=== PATIENT | female | born 2000 | race Caucasian/White ===

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

== ENCOUNTER → 2019-03-25 07:12 | Outpatient (CLI) | payer OTHER, SELFPAY ==
--- NOTE | 2019-03-25 07:13 | DI.US.S_ITS ---
PROCEDURE: US PELVIC COMPLETE INDICATIONS: CHECK IUD PLACEMENT TECHNIQUE: Real-time scanning was performed of the pelvic organs, with image documentation. Additional endovaginal scanning was necessary due to incomplete visualization of the adnexal and endometrial structures by transabdominal scanning. COMPARISON: [facility], , US PELVIC COMPLETE, 08/24/2018, 15:38. FINDINGS: Transabdominal scanning: Limited scanning through the kidneys shows no hydronephrosis. No pathologic free abdominal or pelvic fluid. Endovaginal scanning: Uterus: Uterus is is anteverted and normal in size at 7.3 x 4.0 x 4.5 cm. (note the uterus was previously retroverted on 08/24/2018). No uterine mass. Vascularity appears normal. The endometrium measures 4.8 mm in combined thickness. Intrauterine device in the expected position. Ovaries: Homogeneous, complex right ovarian mass measuring 3.6 x 2.2 x 3.1 cm and there is mild posterior acoustic enhancement present. Left ovary is normal at 3.0 x 1.6 x 3.0 cm. Mild amount of hemorrhagic free fluid is present in the pelvic cul-de-sac. IMPRESSION: 1. Intrauterine device in the expected positions. 2. Probable hemorrhagic ovarian cyst involving the right ovary. Given the complexity present, recommend short term follow pelvic ultrasound in 6-10 weeks to assess for temporal resolution. 3. Mild amount of hemorrhagic free fluid. Dictated by: Santino PHELPS Interpreted: Mansoor Orellana MD on 03/25/2019 at 9:27 Approved by: Mansoor Orellana M.D. on 03/25/2019 at 13:07
== END ==
PROVIDERS: PCP Family Medicine; Visit Provider Specialist
DX: T83.32XA Displacement of intrauterine contraceptive device, initial encounter (principal); N83.9 Noninflammatory disorder of ovary, fallopian tube and broad ligament, unspecified
CPT/HCPCS: 76830; 76856

== ENCOUNTER → 2021-01-17 12:43 | Outpatient (CLI) | payer OTHER, SELFPAY ==
--- NOTE | 2021-01-17 12:45 | DI.CT.S_ITS ---
PROCEDURE: CT SINUS SCREEN WO CON INDICATIONS: Chronic pansinusitis TECHNIQUE: Noncontrast 3.0 mm axial images acquired from the frontal sinuses to the mid-sella, with coronal and sagittal reformats. For radiation dose reduction, the following was used: automated exposure control, adjustment of mA and/or kV according to patient size. COMPARISON: None. FINDINGS: Image quality: Excellent. Maxillary Sinuses: No bony remodeling or destruction. Sinuses are clear. Ethmoid Air Cells: No bony remodeling or destruction. Sinuses are clear. Sphenoid Sinuses: No bony remodeling or destruction. Sinuses are clear. Frontal Sinuses: No bony remodeling or destruction. Sinuses are clear. Ostiomeatal Complexes: Ostiomeatal complexes are patent. No Karlo cells. Miscellaneous: Visualized intra-orbital contents are normal. No apple bullosa or paradoxical turbinate curvature. There is minimal rightward nasal septal deviation. IMPRESSION: No significant active paranasal sinus disease is seen. Minimal rightward nasal septal deviation can be seen. Dictated by: Tab Baptiste M.D. on 01/17/2021 at 12:39 Approved by: Tab Baptiste M.D. on 01/17/2021 at 12:40
== END ==
PROVIDERS: PCP Family Medicine; Referring Provider Otolaryngology; Visit Provider Otolaryngology
DX: J32.4 Chronic pansinusitis (principal)
CPT/HCPCS: 70486

== ENCOUNTER → 2021-08-15 09:45 | Outpatient (CLI) | payer OTHER, SELFPAY ==
[2021-08-15 12:10] LABS: COVID19 -Nasal RAPID Negative (Negative)
== END ==
PROVIDERS: PCP Family Medicine; Visit Provider Nurse Practitioner Family
DX: Z20.822 Contact with and (suspected) exposure to COVID-19 (principal)
CPT/HCPCS: 87635; C9803

== ENCOUNTER 2021-08-16 07:13 | Day surgery (SDC) | payer OTHER, SELFPAY ==
[2021-08-13 15:07] VITALS: BMI 19.1
[2021-08-16] VITALS (13 sets, daily range): BP systolic 111–140; BP diastolic 64–91; PULSE 6–102; RESP 10–18; TEMP 36.3–37; O2SAT 91–100; BMI 19.1
--- NOTE | 2021-08-16 07:34 | PM.PREOP ---
Pre-operative Note Interval Note History & Physical reviewed/Exam performed by Physician: Yes Changes to H&P: Yes
--- NOTE | 2021-08-16 07:34 | PM.HP.1 ---
History of Present Illness History of Present Illness Date Patient Seen: 08/16/21 Time Patient Seen: 07:34 Chief complaint: Chronic tonsillitis Narrative: 20-year-old female with known chronic tonsillitis, tonsil stones, halitosis and throat pain, incompletely managed with medical therapy presents for tonsillectomy and possible adenoidectomy. Last seen in clinic 06/27/2021, tonsils 2+ on exam without visible stones. No interval health changes, wishes to proceed. Patient History Medical History Dysmenorrhea GERD (gastroesophageal reflux disease) Menorrhagia Pelvic varices Tonsil stone Surgical History H/O of nasal cauterization History of hysteroscopy (10/09/18) Family & Social History Social History: household members family Tobacco & Substance use: Smoking Status Never smoker alcohol intake current Meds Home Medications and Allergies Home Medications Medication Instructions Recorded Confirmed Type pantoprazole 40 mg tablet,delayed 40 mg PO DAILY 08/16/21 08/16/21 History release Allergies Allergy/AdvReac Type Severity Reaction Status Date / Time latex Allergy Unknown Verified 08/16/21 07:20 lactose AdvReac Severe throat Verified 11/12/18 15:44 hurts, itching , swollen throat Review of Systems Review of Systems Narrative: Negative except as listed in the HPI along with GERD Exam Narrative Exam Narrative: Well-developed well-nourished female in no acute distress. Heart regular rate and rhythm without murmur, lungs clear to auscultation bilaterally Assessment & Plan Assessment & Plan narrative: Assessment: Chronic tonsillitis, tonsil stones, halitosis, throat pain Plan: Following discussion of the material risks benefits complications and alternatives, she elected to proceed with tonsillectomy and possible adenoidectomy as an outpatient. Time Spent With Patient Critical Care time: I spent a total of [] minutes of critical care time on this patient's care today; this time is exclusive of procedural time.
--- NOTE | 2021-08-16 07:37 | PM.OP.1 ---
Operative Date/Time/Diagnoses Date of procedure: 08/16/21 Time of procedure: 08:55 Pre-op diagnosis: Chronic tonsillitis, tonsil stones, halitosis, throat pain Post-op diagnosis: same Procedure & Clinicians Procedure: Tonsillectomy and adenoidectomy Same procedure as scheduled: Yes Indications: 20-year-old female with the above diagnoses incompletely managed with medical therapy presents for the above procedures. Following discussion of the material risks benefits complications and alternatives, the patient elected to proceed. Surgeon: Dylan Gastelum Click Yes if Unassisted: Yes Anesthesia Type: General and Local Operative Notes Findings: Intact palate, single uvula, 2+ tonsils, deeper dissection required LEFT, 2+ adenoids Estimated Blood Loss (mL): 10 Procedure in detail: Following identification and confirmation of consent the patient was brought to the operating room suite and placed in the supine position. General endotracheal anesthesia was administered. A head wrap, shoulder roll, and mouth gag were placed and a red rubber catheter was inserted through the nostril and out the mouth to retract the soft palate. Partially obstructive adenoid tissue was ablated with suction electrocautery on a setting of 40, without injury to the eustachian tube orifices or choana. The left tonsil was retracted medially and suction electrocautery on a setting of 30 was used to dissect the tonsil in a subcapsular plane, followed by hemostasis with the same. This process was repeated on the right side with identical findings. The tonsillar fossae were superficially infiltrated bilaterally with a 1:1 mixture of 1% lidocaine 1 100,000 epinephrine and 0.25% Marcaine. Mouth gag and rubber catheter were removed and the patient was extubated in the operating room and taken to the recovery room in stable condition without known complication. Complications: none Post-operative Condition: stable Disposition: same day surgery Plan for aftercare: Push fluids, alternate Tylenol and Advil every 3 hours for baseline pain control, oxycodone for breakthrough pain. Soft diet 2 full weeks, no heavy lifting or straining 2 weeks.
--- NOTE | 2021-08-16 08:12 | SUR.PREOP ---
0805-Copies of pts blood restriction forms made and placed in chart. Refusal to get blood forms signed. Dr Gastelum aware. Dr Gonzalez aware.
[2021-08-16] MEDS: LACTATED RINGERS 1,000 ML 42 ML IV (08:14)
[2021-08-16] MEDS: LIDOCAINE 1% W/EPI 20 ML INJ (08:39)
[2021-08-16] MEDS: BUPIVACAINE 0.25% (PF) VIAL 30 ML INJ (08:40)
[2021-08-16] MEDS: fentaNYL 250 MCG/5 ML INJ IV ×2 (09:22→09:30)
[2021-08-16] MEDS: ONDANSETRON 4 MG/2 ML INJ IV (09:27)
--- NOTE | 2021-08-16 09:30 | SUR.PHASEI ---
Patient taking ice chips.
--- NOTE | 2021-08-16 09:37 | SUR.PHASEI ---
Patient to PACU at 0903. Patient with partial laryngospasm. Hed held with chin lift by Dr Gonzalez until spasm passed. Pt awoke, was able to cough, very slight bloody drainage suctions from mouth. Able to breath on her own.
[2021-08-16] MEDS: OXYCODONE/ACETAMINOPHEN 5/325 TABLET 1 TAB PO ×2 (09:49→10:38)
--- NOTE | 2021-08-16 10:25 | SUR.PHASEI ---
1010 Pt transferred to [facility] in stretcher. Pt alert, oriented, complaining of sore throat and slight difficulty breathing. No upper or lower airway obstruction, lungs clear, pt states at home she will try to hyperventilate but declined to say when she would do this. No signs/symptoms of resp distress. Tolerated apple sauce, water and apple juice without problems in addition to Percocet. SBAR repot given at bedside to Haydee WARE
[2021-08-16] MEDS: LORazepam 2 MG/ML INJ 0.25 MG IV (10:45)
== END 2021-08-16 11:32 | disposition home or self-care (01) ==
PROVIDERS: PCP Family Medicine; Referring Provider Otolaryngology; Visit Provider Otolaryngology
PROC: (CPT 42821; principal; 2021-08-16 08:15)
DX: J35.01 Chronic tonsillitis (principal); J35.8 Other chronic diseases of tonsils and adenoids
CPT/HCPCS: 42821; J1100; J2060; J2250; J2405; J2704; J3010